=== PATIENT | male | born 1975 | race African-American/Black ===

== ENCOUNTER 2018-03-23 16:55 | Inpatient (IN) | payer MEDICAID ==
[~2018-03-23] VITALS: Ht 193 cm; Wt 77.0 kg
[2018-03-23] MEDS ORDERED: methylPREDNISolone SOD SUCC 125 MG/2 ML VL ONE ×2 (17:06→17:29)
[2018-03-23] MEDS ORDERED: ALBUTEROL SULF 2.5 MG/0.5ML(0.5%) NEB SOLN ONE (17:12)
[2018-03-23] MEDS ORDERED: IPRATROPIUM BROM 0.5 MG/2.5ML INH SOL ONE (17:12)
[2018-03-23] MEDS ORDERED: IPRATROPIUM BROM 0.5 MG/2.5ML INH SOL NEB ONE ×2 (17:15→20:45)
[2018-03-23] MEDS ORDERED: ALBUTEROL SULF 2.5 MG/0.5ML(0.5%) NEB SOLN HHN ONE (17:15)
[2018-03-23] MEDS ORDERED: IPRATROPIUM BROM 0.5 MG/2.5ML INH SOL HHN ONE (17:15)
[2018-03-23] MEDS ORDERED: ALBUTEROL SULF 2.5 MG/0.5ML(0.5%) NEB SOLN NEB ONE ×2 (17:15→20:45)
[2018-03-23] MEDS ORDERED: methylPREDNISolone SOD SUCC 125 MG/2 ML VL IV ONE (17:30)
[2018-03-23] MEDS ORDERED: MAGNESIUM SULFATE 1GM/100ML 200 ML IV ONE (17:32)
[2018-03-23] MEDS: MAGNESIUM SULFATE 1GM/100ML 100 ML IV SCH ×2 (17:35→18:45)
[2018-03-23] MEDS ORDERED: SODIUM CHLORIDE 0.9% 1,000 ML IV ONE (17:45)
[2018-03-23] MEDS ORDERED: cefTRIAXone 1GM/10ml IVPUSH 10 ML IV ONE (18:00)
[2018-03-23 18:34] LABS: Basophils # (auto) 0 uL; Basophils % (auto) 0.5 % (0.0-2.0); Eosinophils # (auto) 0.2 uL; Eosinophils % (auto) 3.9 % (0.0-7.0); Hematocrit 43.5 % (41.0-53.0); Hemoglobin 14.3 g/dL (13.5-17.5); Lymphocytes # (auto) 1.5 uL; Lymphocytes % (auto) 25.6 % (10.0-50.0); Mean Corpuscular Hemoglobin 29.1 pg (28.0-32.0); Mean Corpuscular Hgb Conc. 32.8 g/dL (32.0-36.0); Mean Corpuscular Volume 88.7 fL (80.0-100.0); Monocytes # (auto) 0.4 uL; Monocytes % (auto) 7.1 % (0.0-12.0); Neutrophils # (auto) 3.7 uL; Neutrophils % (auto) 62.9 % (37.0-80.0); Nucleated Red Blood Cells % 0.1 %; Platelet Count (auto) 216 10^3/uL (140-450); Red Blood Cells 4.91 10^6/uL (4.5-5.90); Red Cell Distribution Width 14.3 % (11.8-14.3); White Blood Cell 5.9 10^3/uL (4.4-10.8)
[2018-03-23 18:56] LABS: Alanine Aminotransferase 19 U/L (16-61); Albumin 3.8 g/dL (3.4-5.0); Alkaline Phosphatase 65 U/L (45-117); Anion Gap 7 (5-15); Aspartate Aminotransferase 16 U/L (15-37); BUN/Creatinine Ratio 6.5; Bilirubin, Total 0.6 mg/dL (0.2-1.0); Blood Urea Nitrogen 6 mg/dL (7-18); Calcium 8.5 mg/dL (8.5-10.1); Carbon Dioxide 30 mmol/L (21-32); Chloride 103 mmol/L (98-107); GFR African American 116 mL/min; GFR Non-African American 96 mL/min; Glucose 106 mg/dL (74-106); Magnesium 2.6 mg/dL (1.6-2.6); Potassium 3.9 mmol/L (3.5-5.1); Sodium 140 mmol/L (136-145); Total Protein 7.6 g/dL (6.4-8.2)
[2018-03-23 20:16] LABS: Urine Bacteria NONE SEEN /hpf (None Seen); Urine Blood Negative /uL (Negative); Urine Specific Gravity 1.005 (1.001-1.035); Urine WBC <1 /hpf (0 - 3)
[2018-03-23] MEDS ORDERED: HYDROcodone-ACET 5/325MG TAB PO PRN (21:30)
[2018-03-23] MEDS ORDERED: ACETAMINOPHEN 500 MG TAB PO PRN (21:30)
[2018-03-23] MEDS ORDERED: ONDANSETRON HCL 4 MG/2 ML VIAL IV PRN (21:30)
[2018-03-23] MEDS ORDERED: LORazepam 0.5 MG TAB PO PRN (21:30)
[2018-03-23 22:42] VITALS: BP 132/62
[2018-03-23] MEDS ORDERED: PRE1T PO (23:29)
[2018-03-23] MEDS ORDERED: ALBU0.5N2 IN (23:29)
[2018-03-24 00:06] VITALS: BP 132/62
[2018-03-24] MEDS: IPRATROPIUM BROM 0.5 MG/2.5ML INH SOL NEB SCH ×4 (02:47→13:46)
[2018-03-24] MEDS: ALBUTEROL SULF 2.5 MG/0.5ML(0.5%) NEB SOLN NEB SCH ×4 (02:47→13:46)
[2018-03-24 05:11] VITALS: BP 108/61
[2018-03-24] MEDS: methylPREDNISolone SOD SUCC 40 MG/ML VL IV SCH ×2 (08:17→14:02)
[2018-03-24 08:21] VITALS: BP 107/71
[2018-03-24 12:03] VITALS: BP 106/64
[2018-03-24 14:31] VITALS: BP 106/64
[2018-03-24 14:43] LABS: Alcohol, Urine < 3.0 mg/dL (0-5); Amphetamine Screen, Urine POSITIVE (NEGATIVE); Barbiturate Scree,Urine NEGATIVE (NEGATIVE); Benzodiazephine Screen, Urine NEGATIVE (NEGATIVE); Cannabinoid Screen, Urine POSITIVE (NEGATIVE); Cocaine Screen, Urine NEGATIVE (NEGATIVE); Opiate Scree,Urine NEGATIVE (NEGATIVE); Phencyclidine Screen, Urine NEGATIVE (NEGATIVE)
== END 2018-03-24 15:49 | disposition home or self-care (01) | DRG 141 ==
LOC: ER 16:58 → OVERFLOW 16:59 → WEST WING 22:42
PROVIDERS: ADMIT Nurse Practitioner Family; ATTEND Nurse Practitioner Family
DX: J45.901 Unspecified asthma with (acute) exacerbation (principal); F12.10 Cannabis abuse, uncomplicated; F15.10 Other stimulant abuse, uncomplicated; Z82.49 Family history of ischemic heart disease and other diseases of the circulatory system; Z71.89 Other specified counseling
CPT/HCPCS: 36415; 71045; 80053; 80307; 81001; 83605; 83735; 84484; 85025; 87040; 93005; 94640; 94761; 96365; 96366; 96375; J0696